=== PATIENT | female | born 1965 | race African-American/Black ===

== ENCOUNTER 2018-10-04 02:26 | Emergency (ER) | payer MEDICAID ==
[~2018-10-04] VITALS: Ht 172.7 cm; Wt 69.0 kg
[2018-10-04 02:32] VITALS: BP 142/86
== END 2018-10-04 03:52 | disposition left against medical advice (07) ==
LOC: ER 02:49
DX: Z53.21 Procedure and treatment not carried out due to patient leaving prior to being seen by health care provider (principal)